=== PATIENT | female | born 1980 ===

== ENCOUNTER 2018-01-01 19:41 | Emergency (ER) | payer MEDICAID ==
[2018-01-01 19:51] VITALS: RESP 16
[2018-01-01] MEDS ORDERED: Iohexol 240 (50 ml) ONE (21:05)
[2018-01-01 21:18] LABS: BASO # 0.1 K/uL (0.0-0.2); BASO % 0.5 % (0.0-2.0); EOS # 0.2 K/uL (0.0-0.7); EOS % 2.4 % (0.0-4.0); HEMOGLOBIN 13.1 g/dL (12.0-16.0); LYMPH # 3.4 K/uL (1.0-4.3); LYMPH % 33.5 % (20.0-40.0); MEAN CELL VOLUME 84.8 fl (81.0-99.0); MEAN CORPUSCULAR HEMOGLOBIN 27.9 pg (27.0-31.0); MEAN CORPUSCULAR HGB CONC 32.9 g/dL (33.0-37.0); MEAN PLATELET VOLUME 8.5 fl (7.2-11.7); MONO # 0.9 K/uL (0.0-0.8); MONO % 9.2 % (0.0-10.0); NEUT # 5.5 K/uL (1.8-7.0); NEUT % 54.4 % (50.0-75.0); NRBC % 0.1 % (0.0-0.0); RBC 4.7 Mil/uL (3.80-5.20); RED CELL DISTRIBUTION WIDTH 12.9 % (11.5-14.5); WHITE BLOOD COUNT 10.1 K/uL (4.8-10.8)
--- NOTE | 2018-01-01 21:33 | ED PDOC ---
HPI: Abdomen Time Seen by Provider: 01/01/18 20:11 Chief Complaint (Nursing): Abdominal Pain Chief Complaint (Provider): Abdominal Pain History Per: Patient History/Exam Limitations: no limitations Onset/Duration Of Symptoms: Intermittent Episodes, Other (x2 weeks) Outside of [place] travel?: No Current Symptoms Are (Timing): Still Present Pain Scale Rating Of: 6 Location Of Pain/Discomfort: RUQ, RLQ Quality Of Discomfort: Sharp Associated Symptoms: denies: Fever, Nausea, Vomiting, Diarrhea, Urinary Symptoms Additional Complaint(s): 37 year old female presents to ED with complaints of intermittent abdominal pain x2 week and has a past medical history of sciatica and migraines. Patient localizes the pain to the right side of her abdomen and notes that the pain radiates from the right mid-abdomen to the right flank. Describes the pain as sharp and varying from a 6/10 to 9/10 in intensity. (-) nausea, vomiting, diarrhea, fever, cough, vaginal discharge, decreased PO intake, or urinary symptoms. PCP: LIZZY ORANTES Past Medical History Reviewed: Historical Data, Nursing Documentation, Vital Signs Vital Signs: Last Vital Signs Temp 98 F 01/02/18 00:49 Pulse 78 01/02/18 00:49 Resp 16 01/02/18 00:49 BP 112/63 01/02/18 00:49 Pulse Ox 100 01/02/18 02:00 - Medical History PMH: Back Problems, Migraine - Surgical History Surgical History: (x 3) - Family History Family History: States: Unknown Family Hx - Living Arrangements Living Arrangements: With Family - Social History Current smoker - smoking cessation education provided: No Ex-Smoker (has not smoked in the last 12 months): No Alcohol: None Drugs: Denies - Immunization History Hx Tetanus Toxoid Vaccination: No Hx Influenza Vaccination: No Hx Pneumococcal Vaccination: No - Home Medications Home Medications: Ambulatory Orders Medication Instructions Recorded Acetaminophen/Tramadol [place] 1 tab PO Q8H #10 tab 07/20/14 [Tramadol/APAP 325 mg-37.5 mg] Cyclobenzaprine [Cyclobenzaprine 10 mg PO TID PRN #20 tab 08/25/17 HCl] Naproxen [Naprosyn] 500 mg PO BID #20 tab 08/25/17 Prednisone 50 mg PO DAILY #5 tablet 08/25/17 Naproxen [Naprosyn] 500 mg PO Q12 #14 tab 01/02/18 - Allergies Allergies/Adverse Reactions: Allergies Allergy/AdvReac Type Severity Reaction Status Date / Time No Known Allergies Allergy Verified 01/01/18 19:49 Review of Systems ROS Statement: Except As Marked, All Systems Reviewed And Found Negative Constitutional: Negative for: Fever Respiratory: Negative for: Cough Gastrointestinal: Positive for: Abdominal Pain (right sided abdominal pain). Negative for: Nausea, Vomiting, Diarrhea, Other ((-) decreased PO intake) Genitourinary Female: Negative for: Dysuria, Frequency, Incontinence, Hematuria , Vaginal Discharge Musculoskeletal: Positive for: Back Pain (abdominal pain radiates to right flank pain) Physical Exam - Reviewed Nursing Documentation Reviewed: Yes Vital Signs Reviewed: Yes - Physical Exam Appears: Positive for: Non-toxic, No Acute Distress Skin: Positive for: Normal Color, Warm, Dry Eye Exam: Positive for: Normal appearance Cardiovascular/Chest: Positive for: Regular Rate, Rhythm. Negative for: Murmur Respiratory: Positive for: Normal Breath Sounds. Negative for: Respiratory Distress Gastrointestinal/Abdominal: Positive for: Soft, Tenderness (mild right mid- abdominal tenderness). Negative for: Normal Exam Back: Positive for: Normal Inspection. Negative for: L CVA Tenderness, R CVA Tenderness Neurologic/Psych: Positive for: Alert, Oriented. Negative for: Motor/Sensory Deficits - Laboratory Results Result Diagrams: 01/01/18 21:14 01/01/18 21:14 - ECG O2 Sat by Pulse Oximetry: 100 (RA) Pulse Ox Interpretation: Normal Medical Decision Making Medical Decision Makin Initial impression: right sided abdominal pain Initial plan: * Labs * Lipase * UPreg * Toradol 15mg IV * UA * US TRANSVAGINAL * Re-eval 0116 TRANSVAGINAL US FINDINGS: Uterus/cervix: Uterus measures 8.7 x 3.7 x 4.9 cm in size. No myometrial mass. Endometrium: 1.3 cm in thickness. Probable nabothian cysts. Small fluid within cervix. Right ovary: 2.6 x 1.9 x 2.5 cm in size. No mass. Small follicles. Normal flow. Left ovary: 3.3 x 1.8 x 3.0 cm in size. 1.6 x 1.8 x 1.5 cm anechoic lesion. Small follicles. Normal flow. Free fluid: No significant free fluid. Bladder: Empty bladder which cannot be evaluated with this probe. IMPRESSION: 1. LEFT ovarian cyst. 2. Small fluid within cervix. Clinical correlation is needed. 3. Incidental/non-acute findings are described above. 0248 CT ABDOMEN AND PELVIS FINDINGS: Lower thorax: 0.4 cm LEFT lower lobe nodule. ABDOMEN: Liver: Fatty infiltration. Gallbladder and bile ducts: No calcified stones. No ductal dilation. Pancreas: No ductal dilation. No mass. Spleen: No splenomegaly. Adrenals: No mass. Kidneys and ureters: No mass. No hydronephrosis. Stomach and bowel: No definite mural thickening. No obstruction. Appendix: Normal caliber. No inflammation. PELVIS: Bladder: Unremarkable. Reproductive: 1.5 x 1.6 x 1.7 cm hypodense lesion within LEFT ovary. Small fluid within cervix. ABDOMEN and PELVIS: Intraperitoneal space: No significant fluid collection. No free air. Bones/joints: Degenerative changes of lower lumbar spine. No acute fracture. Soft tissues: Unremarkable. Vasculature: Retroaortic LEFT renal vein. No aneurysm. Lymph nodes: No pathologically enlarged lymph nodes. IMPRESSION: 1. LEFT ovarian cyst. See ultrasound report. 2. Small fluid within cervix. Clinical correlation is needed. 3. Pulmonary nodule. For low-risk patients, no follow-up is necessary. For high- risk patients (smoking history or other known risk factors) an optional CT at 12 months could be performed. 4. Incidental/non-acute findings are described above. 0240 Upon reevaluation, patient reports a marked improvement of symptoms. Patient advised to follow up with clinic where she is a patient. Scribe Attestation: Documented by Carlie Jaffe and Luis Vasquez, acting as scribes for Tahir Liang MD. Scribe Attestation: All medical record entries made by the Scribe were at my direction and personally dictated by me. I have reviewed the chart and agree that the record accurately reflects my personal performance of the history, physical exam, medical decision making, and the department course for this patient. I have also personally directed, reviewed, and agree with the discharge instructions and disposition. Disposition - Clinical Impression Clinical Impression: Ovarian cyst - Patient ED Disposition Is Patient to be Admitted: No Counseled Patient/Family Regarding: Studies Performed, Diagnosis, Need For Followup - Disposition Disposition: Routine/Home Disposition Time: 02:50 Condition: STABLE Prescriptions: Naproxen [Naprosyn] 500 mg PO Q12 #14 tab Instructions: Ovarian Cysts Forms: [facility] (Russian) Print Language: ITALIAN
[2018-01-01 21:35] LABS: ALB/GLOB RATIO 1.1 (1.0-2.1); ALBUMIN 4.1 g/dL (3.5-5.0); ALT/SGPT 38 U/L (9-52); AST/SGOT 39 U/L (14-36); BLOOD UREA NITROGEN 15 mg/dl (7-17); CALCIUM 9.6 mg/dL (8.4-10.2); GFR AFRICAN-AMERICAN > 60; GFR NON-AFRICAN AMERICAN > 60; LIPASE 221 U/L (23-300)
[2018-01-01] MEDS ORDERED: Iohexol 240 (50 ml) PO ONE (22:17)
--- NOTE | 2018-01-02 01:16 | US ---
EXAM: US Pelvis, Transvaginal CLINICAL HISTORY: 37 years old, female; Pain; Pelvic pain; Additional info: Right ov pain TECHNIQUE: Real-time transvaginal pelvic ultrasound (complete) with image documentation. Transvaginal imaging was used for better evaluation of the endometrium and adnexa. COMPARISON: No relevant prior studies available. FINDINGS: Uterus/cervix: Uterus measures 8.7 x 3.7 x 4.9 cm in size. No myometrial mass. Endometrium: 1.3 cm in thickness. Probable nabothian cysts. Small fluid within cervix. Right ovary: 2.6 x 1.9 x 2.5 cm in size. No mass. Small follicles. Normal flow. Left ovary: 3.3 x 1.8 x 3.0 cm in size. 1.6 x 1.8 x 1.5 cm anechoic lesion. Small follicles. Normal flow. Free fluid: No significant free fluid. Bladder: Empty bladder which cannot be evaluated with this probe. IMPRESSION: 1. LEFT ovarian cyst. 2. Small fluid within cervix. Clinical correlation is needed. 3. Incidental/non-acute findings are described above.
[2018-01-02] MEDS ORDERED: Iohexol 300 100 ML IJ ONE (02:03)
--- NOTE | 2018-01-02 02:49 | CT ---
EXAM: CT Abdomen and Pelvis With Intravenous Contrast CLINICAL HISTORY: 37 years old, female; Pain; Abdominal pain; Acute; Additional info: Right abd pain TECHNIQUE: Axial computed tomography images of the abdomen and pelvis with intravenous contrast. All CT scans at this facility use one or more dose reduction techniques, viz.: automated exposure control; ma/kV adjustment per patient size (including targeted exams where dose is matched to indication; i.e. head); or iterative reconstruction technique. Coronal and sagittal reformatted images were created and reviewed. CONTRAST: 95 mL of omnipaque 300 administered intravenously. COMPARISON: US - TRANSVAGINAL 2018-01-02 00:04 FINDINGS: Lower thorax: 0.4 cm LEFT lower lobe nodule. ABDOMEN: Liver: Fatty infiltration. Gallbladder and bile ducts: No calcified stones. No ductal dilation. Pancreas: No ductal dilation. No mass. Spleen: No splenomegaly. Adrenals: No mass. Kidneys and ureters: No mass. No hydronephrosis. Stomach and bowel: No definite mural thickening. No obstruction. Appendix: Normal caliber. No inflammation. PELVIS: Bladder: Unremarkable. Reproductive: 1.5 x 1.6 x 1.7 cm hypodense lesion within LEFT ovary. Small fluid within cervix. ABDOMEN and PELVIS: Intraperitoneal space: No significant fluid collection. No free air. Bones/joints: Degenerative changes of lower lumbar spine. No acute fracture. Soft tissues: Unremarkable. Vasculature: Retroaortic LEFT renal vein. No aneurysm. Lymph nodes: No pathologically enlarged lymph nodes. IMPRESSION: 1. LEFT ovarian cyst. See ultrasound report. 2. Small fluid within cervix. Clinical correlation is needed. 3. Pulmonary nodule. For low-risk patients, no follow-up is necessary. For high-risk patients (smoking history or other known risk factors) an optional CT at 12 months could be performed. 4. Incidental/non-acute findings are described above.
[2018-01-02 03:11] VITALS: BP 116/70; PULSE 79; TEMP 97.8; O2SAT 99
== END 2018-01-02 03:15 | disposition home or self-care (01) ==
LOC: H.ER 19:41
DX: N83.202 Unspecified ovarian cyst, left side (principal)
CPT/HCPCS: 74177; 76830; 80053; 81025; 83690; 85025; 96374; 99285; J1885; Q9966; Q9967

== ENCOUNTER 2018-02-02 10:26 | Emergency (ER) | payer MEDICAID ==
[2018-02-02 10:45] VITALS: BMI 26.0
[2018-02-02 10:46] VITALS: BP 115/76; PULSE 77; RESP 16; TEMP 98; O2SAT 100
[2018-02-02] MEDS ORDERED: Sodium Chloride 0.9% 1,000 ML IV STA (11:12)
--- NOTE | 2018-02-02 11:29 | ED PDOC ---
HPI: Headache Time Seen by Provider: 02/02/18 11:05 Chief Complaint (Nursing): Headache Chief Complaint (Provider): Headache History Per: Patient History/Exam Limitations: no limitations Onset/Duration Of Symptoms: Days (3) Current Symptoms Are (Timing): Still Present Additional Complaint(s): Pt. with frontal headache going to the back of her head. Is mild, same as her previous migraines. No numbness, tingles. No neck pain, weakness. Not worst pain of her head. No leg pain, dyspnea, nausea, vomit. Has mild chest pain, gone currently. No fever. Took her migraine meds and helped some. Sees Dr. De La Vega for migraines. Past Medical History Reviewed: Nursing Documentation, Vital Signs Vital Signs: Last Vital Signs Temp 98 F 02/02/18 10:46 Pulse 77 02/02/18 10:46 Resp 16 02/02/18 10:46 BP 115/76 02/02/18 10:46 Pulse Ox 100 02/02/18 10:46 - Medical History PMH: Back Problems, Migraine - Surgical History Surgical History: (x 3) - Family History Family History: States: Unknown Family Hx - Social History Alcohol: None Drugs: Denies - Immunization History Hx Tetanus Toxoid Vaccination: No Hx Influenza Vaccination: No Hx Pneumococcal Vaccination: No - Home Medications Home Medications: Ambulatory Orders Medication Instructions Recorded Acetaminophen/Tramadol [place] 1 tab PO Q8H #10 tab 07/20/14 [Tramadol/APAP 325 mg-37.5 mg] Cyclobenzaprine [Cyclobenzaprine 10 mg PO TID PRN #20 tab 08/25/17 HCl] Naproxen [Naprosyn] 500 mg PO BID #20 tab 08/25/17 Prednisone 50 mg PO DAILY #5 tablet 08/25/17 Naproxen [Naprosyn] 500 mg PO Q12 #14 tab 01/02/18 Ibuprofen [Motrin] 600 mg PO TID 7 Days tab 02/02/18 - Allergies Allergies/Adverse Reactions: Allergies Allergy/AdvReac Type Severity Reaction Status Date / Time No Known Allergies Allergy Verified 01/01/18 19:49 Review of Systems ROS Statement: Except As Marked, All Systems Reviewed And Found Negative Cardiovascular: Positive for: Chest Pain Neurological: Positive for: Headache Physical Exam - Reviewed Nursing Documentation Reviewed: Yes Vital Signs Reviewed: Yes - Physical Exam Appears: Positive for: Non-toxic, No Acute Distress Head Exam: Positive for: ATRAUMATIC, NORMAL INSPECTION, NORMOCEPHALIC Skin: Positive for: Normal Color, Warm, DRY Eye Exam: Positive for: EOMI, Normal appearance, PERRL ENT: Positive for: Normal ENT Inspection Neck: Positive for: Normal, Painless ROM Cardiovascular/Chest: Positive for: Regular Rate, Rhythm. Negative for: Edema Respiratory: Positive for: CNT, Normal Breath Sounds Gastrointestinal/Abdominal: Positive for: Normal Exam, Soft. Negative for: Tenderness Back: Positive for: Normal Inspection. Negative for: L CVA Tenderness, R CVA Tenderness Extremity: Positive for: Normal ROM. Negative for: Tenderness, Pedal Edema Neurologic/Psych: Positive for: Alert, revenue cycle manager II-XII, Oriented. Negative for: Motor/Sensory Deficits, Aphasia, Facial Droop - Laboratory Results Result Diagrams: 02/02/18 11:50 02/02/18 11:50 Interpretation Of Abn Labs: no acute - ECG ECG: Positive for: Interpreted By Me, Viewed By Me ECG Rhythm: Positive for: Normal QRS, Normal ST Segment, Sinus Rhythm O2 Sat by Pulse Oximetry: 100 Pulse Ox Interpretation: Normal - Radiology X-Ray: Read By Radiologist X-Ray Interpretation: No Acute Disease - CT Scan/US ct Other Rad Studies (CT/US): Read By Radiologist Other Rad Interpretation: no acute Disposition - Clinical Impression Clinical Impression: Headache, Chest pain - Patient ED Disposition Is Patient to be Admitted: No Counseled Patient/Family Regarding: Studies Performed, Diagnosis, Need For Followup, Rx Given - Disposition Referrals: [facility] [Outside] - 02/03/18 Zac De La Vega MD [Medical Doctor] - 02/03/18 Disposition: Routine/Home Disposition Time: 14:18 Condition: STABLE Additional Instructions: Return if not better in 3 days. Prescriptions: Ibuprofen [Motrin] 600 mg PO TID 7 Days tab Instructions: Chest Pain (DC), Headache, Adult (DC) Print Language: [id number]
--- NOTE | 2018-02-02 11:47 | CT ---
PROCEDURE: CT HEAD WITHOUT CONTRAST. HISTORY: Headache COMPARISON: None available. TECHNIQUE: Axial computed tomography images were obtained through the head/brain without intravenous contrast. Radiation dose: Total exam DLP = 720.99 mGy-cm. This CT exam was performed using one or more of the following dose reduction techniques: Automated exposure control, adjustment of the mA and/or kV according to patient size, and/or use of iterative reconstruction technique. FINDINGS: HEMORRHAGE: No intracranial hemorrhage. BRAIN: Zuñiga-white matter differentiation is preserved. There is no mass, mass effect or abnormal extra-axial fluid collection. VENTRICLES: The ventricles are normal in size, shape and configuration. CALVARIUM: The skull base and calvarium are normal. PARANASAL SINUSES: Predominantly clear. MASTOID AIR CELLS: Predominantly clear. OTHER FINDINGS: None. IMPRESSION: No acute intracranial abnormality.
[2018-02-02 12:05] LABS: BASO # 0.1 K/uL (0.0-0.2); BASO % 0.6 % (0.0-2.0); EOS # 0.1 K/uL (0.0-0.7); EOS % 1.2 % (0.0-4.0); HEMOGLOBIN 14.6 g/dL (12.0-16.0); LYMPH % 20.6 % (20.0-40.0); MEAN CELL VOLUME 83.3 fl (81.0-99.0); MEAN CORPUSCULAR HEMOGLOBIN 28.3 pg (27.0-31.0); MEAN CORPUSCULAR HGB CONC 33.9 g/dL (33.0-37.0); MEAN PLATELET VOLUME 8.7 fl (7.2-11.7); MONO # 0.6 K/uL (0.0-0.8); MONO % 6.2 % (0.0-10.0); NEUT # 6.9 K/uL (1.8-7.0); NEUT % 71.4 % (50.0-75.0); NRBC % 0.1 % (0.0-0.0); RBC 5.15 Mil/uL (3.80-5.20); WHITE BLOOD COUNT 9.7 K/uL (4.8-10.8)
[2018-02-02 12:19] LABS: ALB/GLOB RATIO 1.1 (1.0-2.1); ALBUMIN 4.6 g/dL (3.5-5.0); ALT/SGPT 30 U/L (9-52); AST/SGOT 30 U/L (14-36); BLOOD UREA NITROGEN 12 mg/dl (7-17); CALCIUM 9.8 mg/dL (8.4-10.2); GFR AFRICAN-AMERICAN > 60; GFR NON-AFRICAN AMERICAN > 60
--- NOTE | 2018-02-03 08:51 | CARD ---
APPROVED REPORT EKG Measurement Heart [id number] <Conclusion> Normal sinus rhythm Normal ECG
== END 2018-02-02 14:45 | disposition home or self-care (01) ==
LOC: H.ER 10:26
DX: R51 Headache (principal); R07.89 Other chest pain
CPT/HCPCS: 70450; 71046; 80053; 81025; 84484; 85025; 93005; 96361; 96365; 96375; 99284; J1885; J2765; J7040